=== PATIENT | male | born 1970 | race Caucasian/White ===

== ENCOUNTER 2016-08-26 18:25 | Emergency (ER) | payer OTHER ==
[~2016-08-26] VITALS: Ht 175.3 cm; Wt 129.7 kg
[2016-08-26] MEDS ORDERED: ASCO25TA PO (18:40)
[2016-08-26] MEDS ORDERED: SIMV40TA2 PO (18:40)
[2016-08-26] MEDS ORDERED: OMEP40CA2 PO (18:40)
[2016-08-26] MEDS ORDERED: HYDR12.55 PO (18:40)
[2016-08-26] MEDS ORDERED: ASPI1TAB PO (18:40)
[2016-08-26] MEDS ORDERED: probiotic PO (18:40)
[2016-08-26] MEDS ORDERED: ONDANSETRON 4MG/2ML VIAL (J2405) IV ONE (21:00)
[2016-08-26] MEDS ORDERED: NS 1,000 ML IV ONE (21:00)
[2016-08-26] MEDS ORDERED: KETOROLAC 30 MG/ML VIAL (J1885) IV ONE (21:00)
[2016-08-26 21:33] LABS: BASO % 0.4 % (0.0-1.0); EOS % 0.7 % (0.0-3.0); LARGE UNSTAINED CELL # 0.1 K/mm3 (0.0-0.4); LARGE UNSTAINED CELL % 2.3 % (0.0-4.0); LYMPH # 0.9 K/mm3 (1.5-4.5); LYMPH % 15.6 % (24.0-44.0); MEAN CORPUSCULAR HEMOGLOBIN 30.4 pg (27.0-33.0); MEAN CORPUSCULAR HGB CONC 35.1 g/dl (32.0-36.5); MEAN CORPUSCULAR VOLUME 86.6 fl (80.0-96.0); MONO # 0.4 K/mm3 (0.0-0.8); MONO % 6.5 % (0.0-5.0); NEUTROPHILS % 74.4 % (36.0-66.0); PLATELET COUNT, AUTOMATED 243 k/mm3 (150-450); RED CELL DISTRIBUTION WIDTH 12.4 % (11.5-14.5); WHITE BLOOD COUNT 5.4 K/mm3 (4.0-10.0)
[2016-08-26 21:57] LABS: ALBUMIN 3.7 GM/DL (3.2-5.2); ALBUMIN/GLOBULIN RATIO 1.23 (1.00-1.93); ALKALINE PHOSPHATASE 63 U/L (45-117); ALT/SGPT 45 U/L (12-78); AMYLASE 25 U/L (25-115); ANION GAP 11 MEQ/L (8-16); AST/SGOT 39 U/L (15-37); BILIRUBIN,DIRECT 0.2 MG/DL (0.0-0.2); BILIRUBIN,TOTAL 0.8 MG/DL (0.2-1.0); BLOOD UREA NITROGEN 15 MG/DL (7-18); CARBON DIOXIDE LEVEL 25 MEQ/L (21-32); CHLORIDE LEVEL 103 MEQ/L (98-107); CREATININE FOR GFR 1.02 MG/DL (0.70-1.30); GLOMERULAR FILTRATION RATE > 60.0 (>60); GLUCOSE, FASTING 109 MG/DL (70-105); POTASSIUM SERUM 3.1 MEQ/L (3.5-5.1); SODIUM LEVEL 139 MEQ/L (136-145); TOTAL PROTEIN 6.7 GM/DL (6.4-8.2)
[2016-08-26 22:23] LABS: MAGNESIUM LEVEL 1.8 MG/DL (1.8-2.4)
[2016-08-26] MEDS ORDERED: K-TA10TA PO (22:54)
[2016-08-26] MEDS ORDERED: ZOFR4TAB3 PO (22:54)
[2016-08-26 22:57] VITALS: BP 121/65
== END 2016-08-26 23:06 | disposition home or self-care (01) ==
LOC: M ED 19:17
DX: R11.2 Nausea with vomiting, unspecified (principal); R19.7 Diarrhea, unspecified; E87.6 Hypokalemia
CPT/HCPCS: 80048; 80076; 81001; 82150; 83690; 83735; 85025; 96374; 96375; 99282; J1885; J2405

== ENCOUNTER → 2020-07-26 | Outpatient (CLI) | payer OTHER ==
[~2020-07-26] MED LIST: ASCO250T20 PO; ASPI81TA26 PO; HYDR12.55 PO; K-TA10TA PO; OMEP40CA97 PO; SIMV40TA20 PO; ZOFR4TAB14 PO; probiotic PO
--- NOTE | 2020-07-26 11:08 | PFTRPT ---
Height: 69.00 Inches Weight: 288.00 Lbs BSA: 2.41 Diagnosis: R05 DATE: 07/26/2020 ORDERED BY: ION Morocho Pre and post bronchodilator studies have excellent technical quality. Forced vital capacity is mildly reduced. FEV1 is in proportion. Obstructive index is therefore normal. Expiratory limit of the flow-volume loop is within normal limits. No bronchodilator response is identified. IMPRESSION: Normal study without bronchodilator response. MTDD
== END ==
LOC: M CARPUL 10:35
PROVIDERS: ATTEND Nurse Practitioner Family
DX: R05 Cough (principal)

== ENCOUNTER → 2020-09-04 | Outpatient (CLI) | payer OTHER ==
[~2020-09-04] MED LIST changes: +METHACHOLINE KIT (J7674) INH ONE
--- NOTE | 2020-09-04 13:36 | PFTRPT ---
Site: [facility], [address] [place], [address] ID: [id number] Name: DAYSI RIBEIRO Visit Date: 09/04/2020 Second ID: [id number] Referring Doctor: RENETTA OSCAR Reviewing Doctor: Otf Johnson MD Administration Physician: Lucia GALAVIZ RRT Age: 50 : 1970 Sex: Male Race: Height: 69.00 Inches Weight: 290.00 Lbs BSA: 2.42 Order IDs: [id number] Requested Test(s): <RESP-PFT.METH CHAL> Diagnosis: R05 of albuterol for post bronchodilator. Review Status: Not Reviewed Pre-Bronch Post-Bronch Pred Actual %Pred Actual %Chng SPIROMETRY FVC (L) 4.94 3.68 74 3.56 -3 FEV1 (L) 3.86 3.30 85 3.21 -2 FEV1/FVC (%) 78 90 115 90 FEF 25% (L/sec) 8.86 5.83 65 6.37 9 FEF 50% (L/sec) 5.93 4.81 81 4.94 2 FEF 75% (L/sec) 1.94 2.76 142 2.20 -20 FEF 25-75% (L/sec) 3.48 4.21 120 4.32 2 FEF Max (L/sec) 9.69 5.90 60 6.49 9 FIVC (L) 3.34 3.14 -5 FIF 50% (L/sec) 5.03 3.89 77 4.08 5 FIF Max (L/sec) 3.99 4.45 11 Expiratory Time (sec) 6.18 6.57 6 Back Extrap Vol (L) 0.10 0.11 7 Time To FEFmax (sec) 0.134 0.123 -7
== END ==
LOC: M CARPUL 12:41
PROVIDERS: ATTEND Nurse Practitioner Family
DX: R05 Cough (principal)
CPT/HCPCS: 94070; J7674

== ENCOUNTER → 2020-11-02 | Outpatient (CLI) | payer OTHER ==
[~2020-11-02] MED LIST changes: -METHACHOLINE KIT (J7674) INH ONE
== END ==
LOC: M RAD 12:30
PROVIDERS: ATTEND Registered Nurse
DX: I71.2 Thoracic aortic aneurysm, without rupture (principal)

== ENCOUNTER → 2020-11-02 | Outpatient (CLI) | payer OTHER ==
--- NOTE | 2020-11-05 09:10 | REP ---
INDICATION: AAA / ECHO 1ST COMPARISON: None TECHNIQUE: Axial noncontrast images from the thoracic inlet to the upper abdomen with coronal and sagittal reformations. This CT examination was performed using the following dose reduction techniques: Automated exposure control, adjustment of mA and/or kv according to the patient's size, and use of iterative reconstruction technique. FINDINGS: The bilateral lung quigley are well aerated, symmetric and clear. No consolidation, effusion, or pneumothorax. Tracheobronchial tree is patent. No suspicious nodule or mass lesion identified. No evidence for adenopathy. Thoracic aorta is normal caliber and appearance without aneurysm. Pulmonary vasculature appears normal by noncontrast evaluation. Heart and pericardium are unremarkable. Surrounding musculoskeletal structures are intact. Limited upper abdomen demonstrates normal a bilateral adrenal glands and normal appearance to the aorta to the level of the renal arteries. IMPRESSION: Normal noncontrast chest CT. Normal appearance to the thoracic and upper abdominal aorta. <Electronically signed by Lloyd Valverde > 11/05/20 [id number]
--- NOTE | 2020-11-06 09:43 | ECHO ---
ECHOCARDIOGRAM DATE OF PROCEDURE: 11/02/2020 Age: 50 Gender: Male Height: 69 inches Weight: 295 pounds Body surface area: 2.43 m2 PATIENT LOCATION: Outpatient. REFERRING PHYSICIAN: Akin Argueta NP. INDICATION: Aortic dilatation. MEASUREMENTS: 2D Measurements: RV 3.7 cm LV 4.8 cm Septum 1.3 cm Posterior wall 1.3 cm Aortic Root 4.0 cm Ascending aorta 4.4 cm LA 4.4 cm LVEF 55% Doppler Measurements: AV 1.09 m/s LVOT 0.8 m/s LVOT diameter 2.2 cm MV-E 129 Early mitral deceleration time 187 msec E prime medial 7.9, E prime lateral 7.6 Average E/E prime ratio 16.6/PCWP 22.5 mmHg PV 0.7 m/s Pulmonary artery acceleration time 100 msec RVSP at least 40 mmHg IVC 2.3 cm COMMENTS: Underlying atrial fibrillation with controlled ventricular response. No apparent intraventricular conduction disturbance. Technically difficult study in light of the patient's body habitus, but diagnostically useful information was still obtained. M-mode and two-dimensional echocardiography was performed with pulse, continuous wave, color flow, and tissue Doppler studies. Mild concentric left ventricular hypertrophy with normal wall motion. Mildly dilated left atrium with elevated estimated mean left atrial pressure. Right heart chamber sizes upper limits of normal with normal right ventricular free wall motion and Doppler evidence of at least moderate pulmonary hypertension. Mildly dilated inferior vena cava with reduced respiratory collapse suggestive of an elevated central venous pressure. Mildly dilated aortic root and [id number] dilated ascending aorta. Aortic valvular sclerosis without functional abnormality. Mild degenerative changes of the mitral valve apparatus with trace insufficiency. Normal appearing tricuspid valve with trace insufficiency. No apparent intracardiac mass. Very small posterior pericardial effusion. MTDD
== END ==
LOC: M CARPUL 12:33
PROVIDERS: ATTEND Thoracic Surgery (Cardiothoracic Vascular Surgery)
DX: I71.2 Thoracic aortic aneurysm, without rupture (principal)

== ENCOUNTER → 2021-11-23 | Outpatient (CLI) | payer OTHER ==
[~2021-11-23] MED LIST changes: +OMEP40CA4 PO; -OMEP40CA97 PO
== END ==
LOC: M SLEEP 20:00
PROVIDERS: ATTEND Nurse Practitioner Family
DX: G47.33 Obstructive sleep apnea (adult) (pediatric) (principal)

== ENCOUNTER → 2022-04-13 | Outpatient (CLI) | payer OTHER ==
[~2022-04-13] MED LIST changes: +ELIQ5TAB PO; +FLEC25TA PO; +LISI5TAB11 PO; +METO1TAB87 PO
== END ==
LOC: M LABSMTC 09:51
PROVIDERS: ATTEND Anesthesiology
DX: Z01.812 Encounter for preprocedural laboratory examination (principal); Z11.52 Encounter for screening for COVID-19

== ENCOUNTER → 2022-12-04 | Day surgery (SDC) | payer OTHER ==
[~2022-12-04] VITALS: Ht 175.3 cm; Wt 136.5 kg
[~2022-12-04] MED LIST changes: -K-TA10TA PO; +LIDOCAINE 2% 100MG/5ML SDV (FOR ANES.) As Ordered ONE; +POTA-164 PO; +propofoL 200 MG/20 ML VIAL As Ordered ONE
[2022-12-04 08:30] VITALS: BP 139/80; TEMP 98; O2SAT 95
== END | disposition home or self-care (01) ==
LOC: M SDC 06:07
PROVIDERS: ATTEND Internal Medicine Cardiovascular Disease
DX: I48.91 Unspecified atrial fibrillation (principal); I10 Essential (primary) hypertension; E78.00 Pure hypercholesterolemia, unspecified; I71.21 Aneurysm of the ascending aorta, without rupture; M17.0 Bilateral primary osteoarthritis of knee; G47.30 Sleep apnea, unspecified; Z79.899 Other long term (current) drug therapy; Z79.01 Long term (current) use of anticoagulants

== ENCOUNTER 2023-03-19 10:55 | Day surgery (SDC) | payer OTHER ==
[~2023-03-19] VITALS: Ht 175.3 cm; Wt 134.4 kg
[~2023-03-19 10:55] MED LIST changes: +BACI1TAB20 PO; -LIDOCAINE 2% 100MG/5ML SDV (FOR ANES.) As Ordered ONE; +METO50TA7 PO; +NS 1,000 ML IV ONE; +OMEP-173 PO; +SIMV20TA22 PO; -propofoL 200 MG/20 ML VIAL As Ordered ONE
[2023-03-19 12:21] VITALS: TEMP 97.3
[2023-03-19 12:44] VITALS: BP 122/75; O2SAT 95
== END 2023-03-19 13:08 | disposition home or self-care (01) ==
LOC: M OPP 10:55
PROVIDERS: ATTEND Surgery
DX: Z12.11 Encounter for screening for malignant neoplasm of colon (principal); D12.0 Benign neoplasm of cecum; K57.30 Diverticulosis of large intestine without perforation or abscess without bleeding; G47.30 Sleep apnea, unspecified; Z99.89 Dependence on other enabling machines and devices; I48.91 Unspecified atrial fibrillation; Z79.01 Long term (current) use of anticoagulants; Z79.02 Long term (current) use of antithrombotics/antiplatelets; Z79.83 Long term (current) use of bisphosphonates; Z79.899 Other long term (current) drug therapy; Z88.8 Allergy status to other drugs, medicaments and biological substances